=== PATIENT | female | born 1995 | race Two or more races ===

== ENCOUNTER 2019-04-20 07:21 | Emergency (ER) | payer MEDICAID ==
[~2019-04-20] VITALS: Ht 165.1 cm; Wt 84.1 kg
[2019-04-20 10:07] VITALS: BP 122/70
== END 2019-04-20 10:52 | disposition home or self-care (01) ==
LOC: ED 08:16
DX: N30.00 Acute cystitis without hematuria (principal)
CPT/HCPCS: 76770; 81001; 81025; 87086; 96372; 99284; J1885

== ENCOUNTER 2019-05-07 19:22 | Emergency (ER) | payer MEDICAID, OTHER ==
[~2019-05-07] VITALS: Ht 167.6 cm; Wt 85.1 kg
[2019-05-07 19:30] VITALS: BP 119/74
== END 2019-05-07 20:26 | disposition home or self-care (01) ==
LOC: ED 20:00
DX: S39.012A Strain of muscle, fascia and tendon of lower back, initial encounter (principal); M54.41 Lumbago with sciatica, right side; V49.09XA Driver injured in collision with other motor vehicles in nontraffic accident, initial encounter; Y93.89 Activity, other specified; Y92.89 Other specified places as the place of occurrence of the external cause; Y99.8 Other external cause status
CPT/HCPCS: 72110; 99283